=== PATIENT | male | born 1990 | race African-American/Black ===

== ENCOUNTER 2023-06-27 22:53 | Emergency (ER) | payer OTHER ==
[2023-06-27 23:01] VITALS: TEMP 98; BMI 24.5
[2023-06-27] MEDS: LACTATED RINGERS SOLUTION 1000 ML INFUS.BAG IV ONE (23:35)
[2023-06-27] MEDS ORDERED: LORazepam 1 MG TABLET ONE (23:36)
[2023-06-27] MEDS: LORazepam 2 MG TABLET PO ONE (23:42)
[2023-06-27 23:57] LABS: BASO % 0.6 % (0-2.0); EOS % 0.1 % (0-4.5); HEMATOCRIT 44.1 % (35.4-49); HEMOGLOBIN 14.7 GM/dL (11.7-16.9); LYMPH % 18.9 % (8-40); MCH 28.6 pg (25.7-33.7); MCHC 33.4 g/dl (32.0-35.9); MEAN CELL VOLUME 85.8 fl (80-96); MEAN PLT VOLUME 7.9 fl (7.5-11.1); MONO % 8.1 % (3.8-10.2); NEUT % 72.3 % (42.8-82.8); PLATELET COUNT 215 10^3/uL (134-434); RBC 5.14 M/mm3 (4.00-5.60); RDW 13.6 % (11.9-15.9); WHITE BLOOD COUNT 6.2 K/mm3 (4.0-10.0)
[2023-06-28 00:11] LABS: POTASSIUM 3.3 mmol/L (3.5-5.1)
[2023-06-28 00:13] LABS: CALCIUM 9.7 mg/dL (8.5-10.1)
[2023-06-28 00:14] LABS: ALBUMIN 4.4 g/dl (3.4-5.0); BLOOD UREA NITROGEN 14.5 mg/dL (7-18)
[2023-06-28 00:17] LABS: CREATININE 1.2 mg/dL (0.55-1.3)
[2023-06-28 00:18] LABS: BILIRUBIN,TOTAL 0.9 mg/dL (0.2-1); TOT PROT 7.5 g/dl (6.4-8.2)
[2023-06-28 00:47] VITALS: BP 114/81; PULSE 68; RESP 16
== END 2023-06-28 01:21 | disposition home or self-care (01) ==
LOC: JER 22:53
DX: R07.9 Chest pain, unspecified (principal); R00.2 Palpitations; R20.0 Anesthesia of skin
CPT/HCPCS: 36415; 71045-TC-FY; 80053; 84484; 85025; 93005; 93010; 99285-25